=== PATIENT | female | born 1945 | race Caucasian/White ===

== ENCOUNTER 2016-10-05 08:23 | Day surgery (SDC) | payer MEDICARE ==
--- NOTE | 2016-09-28 15:23 | HISTORY AND PHYSICAL E ---
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 The patient is 71 years old, referred to us by Dr. Coronel for evaluation of reflux, heartburn, questioned Curtis esophagus. She is pending upper endoscopy to be done in the OR with anesthesia standby. She is difficult to intubate. Endoscopy 7 years ago. She does complain of occasional dysphagia. She does have IBS and constipation, questioned colitis in January 2016. The patient has occasional wheezing. SOCIAL HISTORY: , now she is a . She does not smoke; she quit. SURGICAL HISTORY: 1. Upper scope and colonoscope 7 years ago. Questioned polyps and Curtis's. 2. Ectopic . 3. Total hysterectomy. 4. Lithotripsy. REVIEW OF SYSTEMS: CARDIAC: High cholesterol. RESPIRATORY: Asthma, inhaler, nebulizer, questioned COPD. ENDOCRINE: Negative. GASTROINTESTINAL: Reflux, polyps, constipation, colitis, questioned Curtis's. NEUROPSYCHIATRIC: Depression. FAMILY HISTORY: Father had congestive heart failure. Mom had sepsis. PHYSICAL EXAMINATION: VITAL SIGNS: Age 71, blood pressure 130/80, pulse 80, respirations 18, temp 98. HEENT: Normal. ABDOMEN: Soft. NEUROLOGIC: Negative. MEDICATIONS: The patient responds to Zantac, nebulizers, Ventolin, Prilosec. CONCLUSIONS: 1. Reflux. 2. Colorectal polyps. 3. Asthma. PLAN: Upper endoscopy to be done in the OR sometime next week. DICTATING PHYSICIAN: MILLY STOVER M.D. [id number] [id number] Y#: [id number] ID: [id number] JOB#: [id number] ACCT: [id number] cc:BETO CORONEL M.D., MAHMOUD M.D. >
--- NOTE | 2016-09-30 08:22 | HISTORY AND PHYSICAL E ---
History and Physical NAME: ABBIE UHSTON : 1945 AGE: 71Y ADMITTED: 10/05/2016 10/05/2016 ROOM: CHIEF COMPLAINT: Patient is 70. Patient has chest pain, reflux. She is referred to us by Dr. Coronel. She does have history of constipation. SOCIAL HISTORY: Patient is . Quit smoking. SURGICAL HISTORY: 1. EGD and colon 7 years ago. 2. Ectopic . 3. Total hysterectomy. 4. Lithotripsy. REVIEW OF SYSTEMS: CARDIAC: High cholesterol. RESPIRATORY: Asthma. Inhaler, nebulizers. GASTROINTESTINAL: Reflux, questioned Curtis's. NEUROPSYCHIATRIC: Depression. FAMILY HISTORY: Father from heart disease. Mom with sepsis. PHYSICAL EXAMINATION: VITAL SIGNS: Age 71, blood pressure 130/80, pulse 80, respirations 18, temp 98. HEENT: Normal. LUNGS: Decreased breath sounds. COPD. ABDOMEN: Soft. No masses. EXTREMITIES: Show no edema. NEUROLOGIC: Negative. MEDICATIONS: 1. Ventolin. 2. Nebulizers. PLAN: Patient take Zantac. Upper endoscopy to be done within the OR with anesthesia standby. Upper endoscopy regarding reflux. Hold aspirin. Schedule for upper scope with anesthesia standby for reflux and Curtis's esophagus. DICTATING PHYSICIAN: MILLY STOVER M.D. 1954M [id number] [facility]#: [id number] ID: [id number] JOB#: [id number] ACCT: [id number] cc:BETO CORONEL M.D., MAHMOUD M.D. >
[2016-10-01 10:27] LABS: HEMATOCRIT 40.7 % (36.0-47.0); HEMOGLOBIN 13.2 g/dL (12.0-15.5); HGB HCT DIFFERENCE -1.1; MEAN CORPUSCULAR HEMOGLOBIN 28.8 pg (27.0-33.4); MEAN CORPUSCULAR HGB CONC 32.5 g/dL (32.0-36.0); MEAN CORPUSCULAR VOLUME 89 fl (80-97); RED BLOOD COUNT 4.59 10^6/uL (3.72-5.28); WHITE BLOOD COUNT 7.1 10^3/uL (4.0-10.5)
[2016-10-01 10:52] LABS: ANION GAP 12 (5-19); BLOOD UREA NITROGEN 19 mg/dL (7-20); CALCIUM 9.7 mg/dL (8.4-10.2); CARBON DIOXIDE 26 mmol/L (22-30); CHLORIDE 105 mmol/L (98-107); CREATININE RESULT 0.81 mg/dL (0.52-1.25); GLUCOSE 72 mg/dL (75-110); POTASSIUM 4.5 mmol/L (3.6-5.0); SODIUM 143.2 mmol/L (137-145)
--- NOTE | 2016-10-01 12:47 | EKG REPORT ---
SEVERITY:- OTHERWISE NORMAL ECG - SINUS RHYTHM BORDERLINE LEFT AXIS DEVIATION : Confirmed by: Madyson Calabrese MD 01-Oct-2016 12:46:36
[~2016-10-05 08:23] MED LIST: LACTATED RINGERS 1000 ML IV PRN; LIDOCAINE 0.5% INJ-PF (5 MG/ML) 50 ML SDV SUBCUT PRN
[2016-10-05] MEDS ORDERED: MIDAZOLAM 2 MG/2 ML INJ ONE (09:52)
[2016-10-05] MEDS ORDERED: PROPOFOL INJ 200 MG/20 ML VIAL IV ONE (09:52)
[2016-10-05] MEDS ORDERED: OXYCODONE-ACETAMINOPHEN 5-325 MG TABLET PO PRN ×2 (11:31)
[2016-10-05] MEDS ORDERED: MEPERIDINE HCL/PF INJ 25 MG/1 ML DISP.SYRIN IV PRN (11:31)
[2016-10-05] MEDS ORDERED: MORPHINE SULFATE 10 MG/ML INJ IV PRN (11:31)
[2016-10-05] MEDS ORDERED: FENTANYL CITRATE INJ/PF 100 MCG/2 ML AMPUL IV PRN ×3 (11:31)
[2016-10-05] MEDS ORDERED: PROMETHAZINE HCL INJ 25 MG/1 ML VIAL IV PRN ×2 (11:31)
[2016-10-05] MEDS ORDERED: DIPHENHYDRAMINE HCL 50 MG/ML VIAL IV PRN (11:31)
[2016-10-05] MEDS ORDERED: LIDOCAINE 2% INJ-PF (20 MG/ML) 10 ML AMPUL ONE (13:14)
[2016-10-05 13:25] VITALS: BP 128/62
[2016-10-05 14:32] LABS: CARCINOEMBRYONIC ANTIGEN 3.5 ng/mL (<3.0)
[2016-10-05 14:36] LABS: FERRITIN 60.7 ng/mL (11.1-264.0)
--- NOTE | 2016-10-05 15:33 | DISCHARGE SUMMARY E ---
Discharge Summary NAME: FABIANA ROSENTHAL : 1945 AGE: 71Y ADMITTED: 10/05/2016 DISCHARGED: 10/05/2016 PROCEDURE: EGD. HISTORY OF PRESENT ILLNESS: Ms. Fabiana Rosenthal presented with reflux. MEDICATIONS: 1. Colace. 2. Aspirin. 3. Ibuprofen. 4. Lipitor. 5. Ventolin. She does have COPD. Underwent upper scope in the OR with anesthesia standby. She has no ulcers. No malignancy. She did have mild esophagitis, mild gastritis, mild duodenitis. LABORATORY: Patient has the following lab: White count 7, hemoglobin 13, hematocrit 40. Platelets normal at 214,000. Her sugar is 72. Her potassium is 4.5. Her BUN is 19, creatinine 0.8. DISCHARGE PLAN: Continue home medications. Patient to see us in the office in the next few days. Assurance. Continue present management. Consider screening colonoscopy. DICTATING PHYSICIAN: MILLY STOVER M.D. 1211M 1304 PHY#: [id number] ID: [id number] JOB#: [id number] ACCT: [id number] cc:BETO CORONEL M.D., MAHMOUD M.D. >
--- NOTE | 2016-10-05 15:35 | OPERATIVE REPORT E ---
Operative Report NAME: ABBIE HUSTON : 1945 AGE: 71Y DATE OF SURGERY: ROOM: PREOPERATIVE DIAGNOSES: 1. The patient is a 71-year-old female. 2. Reflux. 3. Small hiatus hernia. POSTOPERATIVE DIAGNOSES: 1. Esophagitis, mild. 2. Small hiatus hernia. 3. Mild esophagitis. 4. Mild gastritis. 5. Mild duodenitis. OPERATION: 1. Esophagoscopy. 2. Gastroscopy. 3. Duodenoscopy. SURGEON: MILLY STOVER M.D. ANESTHESIA: Done in the OR with anesthesia standby. TISSUE REMOVED OR ALTERED: None. PROCEDURE: The baby scope passed under guided vision with no difficulty. ESOPHAGOSCOPY: Junction at 55 cm; a 2 cm sliding hiatus hernia. No evidence of ulcers. Mild esophagitis. No malignancy. GASTROSCOPY: Mild gastritis. No ulcers. DUODENOSCOPY: Duodenal bulb; descending duodenum shows mild duodenitis. CONCLUSION: Hiatus hernia with mild esophagitis, mild gastritis, mild duodenitis. Patient tolerated the procedure well and discharged to her room in stable condition. Patient in the OR with anesthesia standby; tolerated well. DICTATING PHYSICIAN: MILLY STOVER M.D. [id number] [id number] Y#: [id number] ID: [id number] JOB#: [id number] ACCT: [id number] cc:BETO CORONEL M.D., MAHMOUD M.D. >
== END 2016-10-05 13:30 | disposition home or self-care (01) ==
LOC: END 08:23
PROVIDERS: ATTEND Specialist
PROC: 0DJ08ZZ Inspection of Upper Intestinal Tract, Via Natural or Artificial Opening Endoscopic (ICD-10-PCS; principal; 2016-10-05 11:00)
DX: K20.9 Esophagitis, unspecified (principal); K29.70 Gastritis, unspecified, without bleeding; K29.80 Duodenitis without bleeding; K44.9 Diaphragmatic hernia without obstruction or gangrene; K21.9 Gastro-esophageal reflux disease without esophagitis; R97.0 Elevated carcinoembryonic antigen [CEA]; D64.9 Anemia, unspecified; J44.9 Chronic obstructive pulmonary disease, unspecified; J45.909 Unspecified asthma, uncomplicated; E78.00 Pure hypercholesterolemia, unspecified; K58.9 Irritable bowel syndrome, unspecified; Z79.899 Other long term (current) drug therapy; Z79.82 Long term (current) use of aspirin; Z79.1 Long term (current) use of non-steroidal anti-inflammatories (NSAID); Z79.51 Long term (current) use of inhaled steroids; Z87.891 Personal history of nicotine dependence
CPT/HCPCS: 43235; 93005; 36415 ×2; 82306; 82607; 82378; 82728; 83540; 85027; 80048; 93010; J2250; J2704; J3490; 740